=== PATIENT | female | born 1950 | race Caucasian/White ===

== ENCOUNTER 2023-01-31 09:48 | Day surgery (SDC) | payer MEDICARE ==
[~2023-01-31] VITALS: Ht 162.6 cm; Wt 56.1 kg
[2023-01-31] MEDS ORDERED: normal saline 1000ml 1,000 ML IV PRN (10:10)
[2023-01-31] MEDS ORDERED: DEXA0.5S (10:23)
[2023-01-31] MEDS ORDERED: OMEG-5 PO (10:23)
[2023-01-31] MEDS ORDERED: TUME1CAP (10:23)
[2023-01-31] MEDS ORDERED: PANT40TA54 PO (10:23)
[2023-01-31] MEDS ORDERED: MULT-1249 (10:23)
[2023-01-31] MEDS ORDERED: GABAPENTIN PO (10:23)
[2023-01-31 10:30] VITALS: BP 190/74; PULSE 64; RESP 18; TEMP 98; O2SAT 96
[2023-01-31] MEDS ORDERED: fentaNYL/PF 50MCG/1 ML 2ML syringe ONE (13:24)
[2023-01-31] MEDS ORDERED: midazolam 1 mg/ML 2ml injection ONE (13:24)
[2023-01-31] MEDS ORDERED: heparin sodium, porcine/PF 100unit/ml 5ML syringe ONE (13:44)
[2023-01-31] MEDS ORDERED: LIDOcaine 1% 30ml preserv. free vial ONE (13:45)
[2023-01-31 14:30] VITALS: BP 188/73; PULSE 68; RESP 14; O2SAT 95
[2023-01-31] MEDS ORDERED: normal saline 1000ml 1,000 ML IV SCH (14:40)
[2023-01-31 14:45] VITALS: BP 177/87; PULSE 63; RESP 17; O2SAT 97
[2023-01-31 15:00] VITALS: BP 147/103; PULSE 62; RESP 15; O2SAT 94
[2023-01-31 15:15] VITALS: BP 163/77; PULSE 62; RESP 16; O2SAT 95
[2023-01-31 15:30] VITALS: BP 180/76; PULSE 63; RESP 18; O2SAT 96
== END 2023-01-31 15:35 | disposition home or self-care (01) ==
LOC: SSTAY O 09:48
PROVIDERS: ATTEND Radiology Vascular & Interventional Radiology
DX: E83.119 Hemochromatosis, unspecified (principal); K21.9 Gastro-esophageal reflux disease without esophagitis; Z79.899 Other long term (current) drug therapy; Z85.818 Personal history of malignant neoplasm of other sites of lip, oral cavity, and pharynx; Z98.890 Other specified postprocedural states; Z88.8 Allergy status to other drugs, medicaments and biological substances; Z91.040 Latex allergy status; Z80.51 Family history of malignant neoplasm of kidney; Z80.8 Family history of malignant neoplasm of other organs or systems
CPT/HCPCS: 36558; 76937; 77001; 99152; 99153; C1751; J2250; J3010; J3490; J7030; 76942; A4620; A9270; C1894; J1642

== ENCOUNTER 2023-09-04 11:56 | Day surgery (SDC) | payer MEDICARE ==
[~2023-09-04] VITALS: Ht 162.6 cm; Wt 54.9 kg
[~2023-09-04 11:56] MED LIST: DEXA0.5S; GABAPENTIN PO; MULT-1249; OMEG-5 PO; PANT40TA54 PO; TUME1CAP
[2023-09-04 12:30] VITALS: BP 148/76; PULSE 69; RESP 14; TEMP 98.4; O2SAT 96
[2023-09-04] MEDS ORDERED: APIX5TAB3 PO (12:43)
[2023-09-04] MEDS ORDERED: HYDR12.55 PO (12:43)
[2023-09-04] MEDS ORDERED: LIDOcaine 1% (10mg/ml)w/preservative inj. 20ml MDV ONE (13:06)
[2023-09-04 13:30] VITALS: BP 138/74; PULSE 74; RESP 16; O2SAT 97
[2023-09-04] MEDS ORDERED: LIDOcaine 1% 30ml preserv. free vial ONE (13:49)
== END 2023-09-04 13:30 | disposition home or self-care (01) ==
LOC: SSTAY O 11:56
PROVIDERS: ATTEND Radiology Vascular & Interventional Radiology
DX: Z45.2 Encounter for adjustment and management of vascular access device (principal); E83.10 Disorder of iron metabolism, unspecified; Z91.040 Latex allergy status; Z88.8 Allergy status to other drugs, medicaments and biological substances; Z79.899 Other long term (current) drug therapy
CPT/HCPCS: 36589; J3490; A6258; A6449